=== PATIENT | female | born 1985 | race Caucasian/White ===

== ENCOUNTER 2017-12-03 21:52 | Emergency (ER) | payer OTHER ==
[~2017-12-03] VITALS: Ht 157.5 cm; Wt 45.4 kg
== END 2017-12-03 22:47 | disposition home or self-care (01) ==
LOC: ER 21:52
DX: S61.512A Laceration without foreign body of left wrist, initial encounter (principal); W25.XXXA Contact with sharp glass, initial encounter; Y93.89 Activity, other specified; Y92.89 Other specified places as the place of occurrence of the external cause; Y99.8 Other external cause status

== ENCOUNTER 2017-12-13 19:32 | Emergency (ER) | payer OTHER ==
[~2017-12-13] VITALS: Ht 160 cm; Wt 47.6 kg
== END 2017-12-13 20:45 | disposition home or self-care (01) ==
LOC: ER 19:32
DX: Z48.02 Encounter for removal of sutures (principal)